=== PATIENT | female | born 1950 | race Caucasian/White ===

== ENCOUNTER → 2019-03-08 18:44 | Outpatient (CLI) | payer MEDICARE, OTHER, SELFPAY ==
--- NOTE | 2019-03-08 18:49 | DI.RAD.S_ITS ---
PROCEDURE: XR CHEST 2V INDICATIONS: COUGH TECHNIQUE: 2 views of the chest were acquired. COMPARISON: None. FINDINGS: Surgical changes and devices: There are extensive post surgery changes status post posterior fixation within the thoracolumbar spine partially visualized. Lungs and pleura: There are mild clustered indistinct opacities peripherally in the right midlung zone. No pleural effusions or pneumothorax. Mediastinum: Mediastinal contours are normal. Heart size is normal. Bones and chest wall: No suspicious bony abnormalities. Soft tissues appear unremarkable. IMPRESSION: 1. Indistinct peripheral opacities in the right lung are nonspecific but suggestive of atypical pneumonia given clinical history. Dictated by: Vishal Guerreor M.D. on 03/08/2019 at 19:37 Approved by: Vishal Guerrero M.D. on 03/08/2019 at 19:39
== END ==
PROVIDERS: Visit Provider Physician Assistant
DX: R05 Cough (principal)
CPT/HCPCS: 71046